=== PATIENT | male | born 1970 | race Caucasian/White ===

== ENCOUNTER 2021-06-14 00:02 | Emergency (ER) | payer OTHER ==
[2021-06-14] MEDS ORDERED: Sodium Chloride 0.9% 1000 ML 1,000 ML IV STA (00:36)
[2021-06-14] MEDS ORDERED: TORAdol 30 mg Injection IV ONE (00:36)
[2021-06-14] MEDS ORDERED: Sodium Chloride 0.9% 1000 ML 1,000 ML ONE (00:41)
[2021-06-14] MEDS ORDERED: TORAdol 30 mg Injection ONE (00:41)
[2021-06-14] MEDS ORDERED: Zofran 4 MG/2 ML VIAL IV ONE (00:42)
[2021-06-14] MEDS ORDERED: Zofran 4 MG/2 ML VIAL ONE (00:42)
[2021-06-14 00:49] LABS: Absolute Neutrophil Ct (ANC) 4.72 (1.4-6.9); Basophil (Absolute #) 0.03 (0-0.4); Eosinophil % 5.1 % (0.00-5.0); Eosinophil (Absolute #) 0.47 (0-0.5); Hematocrit 42.5 % (42-50); Hemoglobin 14.6 gm/dl (12.5-18.0); Lymphocyte (Absolute #) 2.95 (1.0-4.6); Lymphocytes % 31.9 % (24.0-44.0); Mean Cell Volume 84.7 fl (78-100); Mean Corpuscular Hemoglobin 29.1 pg (26-32); Mean Corpuscular Hgb Concent. 34.4 g/dl (32-36); Mean Platelet Volume 10.5 fl (7.5-11.0); Monocyte (Absolute #) 1.09 (0.0-1.3); Monocytes % 11.8 % (0.0-12.0); Neutrophil % 50.9 % (36.0-66.0); Platelet Count 217 K/mm3 (150-450); Red Blood Count 5.02 M/mm3 (4.1-5.6); Red Cell Distribution Width 13.6 % (11.5-14.0); White Blood Count 9.3 K/mm3 (4.0-10.5)
[2021-06-14 01:01] LABS: ALBUMIN 4.4 g/dL (3.5-5.0); ALKALINE PHOSPHATASE 50 U/L (38-126); ANION GAP 12.8 MEQ/L (5-15); BLOOD UREA NITROGEN 14 mg/dL (9-20); CHLORIDE 99 mmol/L (98-107); Calcium 9.1 mg/dL (8.4-10.2); Carbon Dioxide 32 mmol/L (22-30); Creatinine 1 1.11 mg/dL (0.66-1.25); EST GLOMERULAR FILTRATION RATE > 60.0 ML/MIN; Glucose 103 mg/dL (74-106); Potassium 3.2 mmol/L (3.5-5.1); SGOT/AST 19 U/L (17-59); SGPT/ALT 18 U/L (0-50); SODIUM 140 mmol/L (137-145); Total Protein 7.5 g/dL (6.3-8.2)
[2021-06-14 01:16] LABS: Appearance CLEAR (CLEAR); Bilirubin NEGATIVE (NEGATIVE); Blood SMALL Ery/ul (0-5); Glucose NEGATIVE (NEGATIVE); Ketones NEGATIVE (NEGATIVE); Leukocyte Esterase NEGATIVE (NEGATIVE); Mucus SLIGHT /HPF (NEGATIVE); Nitrite NEGATIVE (NEGATIVE); Protein,Urine Dip NEGATIVE (Negative); Urobilinogen NEGATIVE mg/dL (0-1); WBC 0-2 /HPF (0-5)
[2021-06-14 01:17] LABS: Bacteria NONE SEEN /HPF (NEGATIVE)
[2021-06-14 01:24] VITALS: BP 123/84; PULSE 68
[2021-06-14 01:25] VITALS: O2SAT 99
--- NOTE | 2021-06-14 01:25 | ERPHSYRPT ---
- History of Present Illness Time Seen by Provider: 06/14/21 00:20 Historian: patient Patient Subjective Stated Complaint: pt states "I woke up with pain in my side and it has got worse." Triage Nursing Assessment: pt ambulated into the er; pt is axo x4; c/o LLQ pain; pt states 6/10 pain to LLQ; pt states pain is dull, sharp, burning that starts in LLQ and radiates to groin; c/o N/V; denies diarrhea; abd is round, soft, tenderness to LLQ; urine clear yellow; active bowel sounds in all quads; hypertensive Physician History: Patient is a 50-year-old male presents to emergency department for evaluation of left lower quadrant pain. Patient states he awoke with the pain just prior to arrival.. Patient states the pain has gotten worse. Pain is mostly the left lower quadrant. Pain currently rated 6 out of 10. Pain is described as a dull to sharp sensation. Pain was associated with nausea and vomiting. Patient denies a history of the same. Symptoms are moderate in intensity. No specific worsening improving factors. Patient urinated shortly after pain onset. However there was no obvious hematuria. Patient is otherwise healthy. No chest pain. No shortness of breath. No rash. No fever. Patient denies trauma. Patient voices no other complaints or concerns at this time. Timing/Duration: today Activities at Onset: none Quality: dullness, sharpness Abdominal Pain Onset Location: LLQ Pain Radiation: no radiation Severity of Pain-Max: moderate Severity of Pain-Current: mild Modifying Factors: Improves With: nothing Associated Symptoms: nausea, vomiting, No diaphoresis, No diarrhea, No fever/ chills, No headache, No shortness of breath, No syncope, No testicular pain Previous symptoms: no prior history Allergies/Adverse Reactions: No Known Drug Allergies Allergy (Unverified 06/14/21 00:13) Home Medications: No Reportable Medications [No Reported Medications] 06/14/21 [History] Hx Tetanus, Diphtheria Vaccination/Date Given: Yes Hx Influenza Vaccination/Date Given: Yes Hx Pneumococcal Vaccination/Date Given: No Immunizations Up to Date: No Travel Risk - International Travel Have you traveled outside of the country in past 3 weeks: No - Coronavirus Screening Are you exhibiting any of the following symptoms?: No Close contact with a COVID-19 positive Pt in past 14-21 Days: No - Vaccine Status Have you recieved a Covid-19 vaccination: 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[employer] - Vaccination Dates Date of 2cond Vaccination (if applicable): 10/06 - Review of Systems Constitutional: No Symptoms, No Fever, No Chills Eyes: No Symptoms Ears, Nose, & Throat: No Symptoms Respiratory: No Symptoms, No Cough, No Dyspnea Cardiac: No Symptoms, No Chest Pain, No Edema, No Syncope Abdominal/Gastrointestinal: No Symptoms, No Abdominal Pain, No Nausea, No Vomiting, No Diarrhea Genitourinary Symptoms: No Symptoms, No Dysuria Musculoskeletal: No Symptoms, No Back Pain, No Neck Pain Skin: No Symptoms, No Rash Neurological: No Symptoms, No Dizziness, No Focal Weakness, No Sensory Changes Psychological: No Symptoms Endocrine: No Symptoms Hematologic/Lymphatic: No Symptoms Immunological/Allergic: No Symptoms All Other Systems: Reviewed and Negative - Past Medical History Pertinent Past Medical History: No Neurological History: No Pertinent History ENT History: No Pertinent History Cardiac History: No Pertinent History Respiratory History: No Pertinent History Endocrine Medical History: No Pertinent History Musculoskeletal History: No Pertinent History GI Medical History: No Pertinent History History: No Pertinent History Psycho-Social History: No Pertinent History Male Reproductive Disorders: No Pertinent History - Past Surgical History Past Surgical History: Yes Neuro Surgical History: No Pertinent History Cardiac: No Pertinent History Respiratory: No Pertinent History Gastrointestinal: Hemorrhoidectomy Genitourinary: No Pertinent History Musculoskeletal: No Pertinent History Male Surgical History: No Pertinent History Other Surgical History: wisdom teeth removal - Social History Smoking Status: Never smoker Exposure to second hand smoke: No Drug Use: none Patient Lives Alone: No - Nursing Vital Signs Nursing Vital Signs: Initial Vital Signs Temperature 97.4 F 06/14/21 00:13 Pulse Rate 61 06/14/21 00:13 Respiratory Rate 16 06/14/21 00:13 Blood Pressure 143/97 06/14/21 00:13 O2 Sat by Pulse Oximetry 99 06/14/21 00:13 Pain Scale Pain Intensity 3 - Physical Exam General Appearance: no apparent distress, alert Eye Exam: PERRL/EOMI, eyes nml inspection Ears, Nose, Throat Exam: normal ENT inspection, TMs normal, pharynx normal, moist mucous membranes Neck Exam: normal inspection, non-tender, supple, full range of motion Respiratory Exam: normal breath sounds, lungs clear, airway intact, No chest tenderness, No respiratory distress Cardiovascular Exam: regular rate/rhythm, normal heart sounds, normal peripheral pulses Gastrointestinal/Abdomen Exam: soft, tenderness (Tenderness palpation left lower quadrant. Overlying soft tissue intact. No signs of trauma.), No normal bowel sounds, No distention, No mass, No guarding Back Exam: normal inspection, normal range of motion, No CVA tenderness, No vertebral tenderness Extremity Exam: normal inspection, normal range of motion, pelvis stable Neurologic Exam: alert, oriented x 3, cooperative, normal mood/affect, nml cerebellar function, sensation nml, No motor deficits Skin Exam: normal color, warm, dry Lymphatic Exam: No adenopathy SpO2 Interpretation: normal SpO2: 99 O2 Delivery: Room Air - Course Nursing assessment & vital signs reviewed: Yes - CT Exams Abdomen/Pelvis CT Interpretation: Tele-radiologist Report (5 mm left renal stone. Otherwise no evidence of acute intra-abdominal or pelvic pathology.) Ordered Tests: Active Orders 24 hr Category Date Time Status IV Insertion STAT Care 06/14/21 00:36 Active ABDOMEN AND PELVIS W/0 CONTRAS [CT] Stat Exams 06/14/21 00:36 Taken CBC W DIFF Stat Lab 06/14/21 00:43 Completed CMP Stat Lab 06/14/21 00:43 Completed UA W/RFX UR CULTURE Stat Lab 06/14/21 00:39 Completed Medication Summary Discontinued Medications Generic Name Dose Route Start Last Admin Trade Name Freq PRN Reason Stop Dose Admin Sodium Chloride 1,000 mls @ 999 mls/hr 06/14/21 00:36 06/14/21 01:44 Sodium Chloride 0.9% 1000 Ml IV 06/14/21 01:36 Infused .Q1H1M STA Infusion Sodium Chloride Confirm 06/14/21 00:41 Sodium Chloride 0.9% 1000 Ml Administered 06/14/21 00:42 Dose 1,000 mls @ ud .ROUTE .STK-MED ONE Ketorolac Tromethamine 30 mg 06/14/21 00:36 06/14/21 00:44 Ketorolac Tromethamine 30 Mg/Ml Inj IV 06/14/21 00:37 30 mg STAT ONE Administration Ketorolac Tromethamine Confirm 06/14/21 00:41 Ketorolac Tromethamine 30 Mg/Ml Inj Administered 06/14/21 00:42 Dose 30 mg .ROUTE .STK-MED ONE Ondansetron HCl 4 mg 06/14/21 00:42 06/14/21 00:44 Ondansetron Hcl 4 Mg/2 Ml Vial IV 06/14/21 00:43 4 mg STAT ONE Administration Ondansetron HCl Confirm 06/14/21 00:42 Ondansetron Hcl 4 Mg/2 Ml Vial Administered 06/14/21 00:43 Dose 4 mg .ROUTE .STK-MED ONE Potassium Chloride 40 meq 06/14/21 01:35 06/14/21 01:40 Potassium Chloride 10 Meq Tablet PO 06/14/21 01:36 40 meq STAT ONE Administration Potassium Chloride Confirm 06/14/21 01:40 Potassium Chloride 10 Meq Tablet Administered 06/14/21 01:41 Dose 40 meq PO .STK-MED ONE Lab/Rad Data: Laboratory Result Diagrams 06/14/21 00:43 06/14/21 00:43 Laboratory Results 06/14/21 06/14/21 06/14/21 Range/Units 00:43 00:43 00:39 WBC 9.3 (4.0-10.5) K/mm3 RBC 5.02 (4.1-5.6) M/mm3 Hgb 14.6 (12.5-18.0) gm/dl Hct 42.5 (42-50) % MCV 84.7 (78-100) fl MCH 29.1 (26-32) pg MCHC 34.4 (32-36) g/dl RDW 13.6 (11.5-14.0) % Plt Count 217 (150-450) K/mm3 MPV 10.5 (7.5-11.0) fl Gran % 50.9 (36.0-66.0) % Eos # (Auto) 0.47 (0-0.5) Absolute Lymphs (auto) 2.95 (1.0-4.6) Absolute Monos (auto) 1.09 (0.0-1.3) Lymphocytes % 31.9 (24.0-44.0) % Monocytes % 11.8 (0.0-12.0) % Eosinophils % 5.1 H (0.00-5.0) % Basophils % 0.3 (0.0-0.4) % Absolute Granulocytes 4.72 (1.4-6.9) Basophils # 0.03 (0-0.4) Sodium 140 (137-145) mmol/L Potassium 3.2 L (3.5-5.1) mmol/L Chloride 99 (98-107) mmol/L Carbon Dioxide 32 H (22-30) mmol/L Anion Gap 12.8 (5-15) MEQ/L BUN 14 (9-20) mg/dL Creatinine 1.11 (0.66-1.25) mg/dL Estimated GFR > 60.0 ML/MIN Glucose 103 (74-106) mg/dL Calcium 9.1 (8.4-10.2) mg/dL Total Bilirubin 0.60 (0.2-1.3) mg/dL AST 19 (17-59) U/L ALT 18 (0-50) U/L Alkaline Phosphatase 50 (38-126) U/L Serum Total Protein 7.5 (6.3-8.2) g/dL Albumin 4.4 (3.5-5.0) g/dL Urine Color YELLOW (YELLOW) Urine Appearance CLEAR (CLEAR) Urine pH 6.0 (5-6) Ur Specific [place] 1.020 (1.005-1.025) Urine Protein NEGATIVE (Negative) Urine Ketones NEGATIVE (NEGATIVE) Urine Blood SMALL (0-5) Facundo/ul Urine Nitrite NEGATIVE (NEGATIVE) Urine Bilirubin NEGATIVE (NEGATIVE) Urine Urobilinogen NEGATIVE (0-1) mg/dL Ur Leukocyte Esterase NEGATIVE (NEGATIVE) Urine WBC (Auto) 0-2 (0-5) /HPF Urine RBC (Auto) 6-10 (0-2) /HPF U Epithel Cells (Auto) NONE (FEW) /HPF Urine Bacteria (Auto) NONE SEEN (NEGATIVE) /HPF Urine Mucus (Auto) SLIGHT (NEGATIVE) /HPF Urine Culture Reflexed NO (NO) Urine Glucose NEGATIVE (NEGATIVE) mg/dL - Progress Progress: improved Progress Note: Patient reassessed. Pain significantly improved. CT abdomen pelvis shows a left 5 mm nonobstructing kidney stone. Otherwise no ureterolithiasis. There is microscopic hematuria. It is possible that patient had a very small stone that passed causing him to feel acute onset pain and the identified microscopic hematuria. However no indication for further work-up at this time. Will discharge patient home. Patient will follow up with Dr. Navarro within 48 hours for evaluation. Patient voices no other complaints or concerns at this time. Portions of this note were created with voice recognition technology. There may be grammatical, spelling, punctuation or sound alike errors 06/14/21 01:53 Counseled pt/family regarding: lab results, diagnosis, need for follow-up, rad results - Departure Departure Disposition: Home Clinical Impression: Microscopic hematuria, Hypokalemia, Nephrolithiasis Condition: Stable Critical Care Time: No Referrals: KIMBERLEY NAVARRO MD [Primary Care Provider] - Follow up/PCP as directed Additional Instructions: Discharge/Care Plan YAMILET CLEVELAND was seen on 06/14/21 in the Emergency Room. The patient was counseled regarding Diagnosis,Lab results, Imaging studies, need for follow up and when to return to the Emergency Room. Prescriptions given: Discharge Note I have spoken with the patient and/or caregivers. I have explained the patient's condition, diagnosis and treatment plan based on the information available to me at this time. I have answered the patient's and/or caregiver's questions and addressed any concerns. The patient and/or caregivers have as good understanding of the patient's diagnosis, condition and treatment plan as can be expected at this point. The vital signs have been stable. The patient's condition is stable and appropriate for discharge from the emergency department. The patient will pursue further outpatient evaluation with the primary care ph ysician or other designated or consulting physician as outlined in the discharge instructions. The patient and/or caregivers are agreeable to this plan of care and follow-up instructions have been explained in detail. The patient and/or caregivers have received these instruction. The patient/and or caregivers are aware that any significant change in condition or worsening of symptoms should prompt an immediate return to this or the closest emergency department or call 911.
[2021-06-14] MEDS ORDERED: Klor Con 10 MEQ PO ONE ×2 (01:35→01:40)
--- NOTE | 2021-06-14 08:47 | XRAY ---
Indication: Left flank pain. Nausea, vomiting, and difficulty urinating. Multiple contiguous axial images obtained through the abdomen and pelvis without contrast using renal stone protocol. Comparison: None Lung bases demonstrates minimal dependent atelectasis. No infiltrate or effusion. Heart not enlarged. Small hiatal hernia. Left kidney demonstrates 5 mm nonobstructing calculus. No other renal calculus or evidence for obstructive uropathy in either system. Noncontrasted stomach and bowel loops appear nonobstructed with normal appendix. No free fluid/air. Remaining liver, gallbladder, pancreas, spleen, adrenal glands, kidneys, ureters, bladder, and aorta are unremarkable for noncontrast exam. Osseous structures intact. No ventral or inguinal hernias. Impression: 1. Nonobstructing left renal micro-calculus. 2. Small hiatal hernia. 3. Remaining CT abdomen/pelvis without contrast exam is negative. Comment: Preliminary interpretation made by [facility]. No critical discrepancy.
== END 2021-06-14 02:06 | disposition home or self-care (01) ==
LOC: ED 00:02
DX: N20.0 Calculus of kidney (principal); E87.6 Hypokalemia; R31.29 Other microscopic hematuria; R11.2 Nausea with vomiting, unspecified
CPT/HCPCS: 36000; 36415; 74176; 80053; 81001; 85025; 96360; 96374; 99284; J1885; J2405; A9270-GY

== ENCOUNTER 2021-06-14 11:21 | Emergency (ER) | payer OTHER ==
[2021-06-14] MEDS ORDERED: Zofran 4 MG/2 ML VIAL IV ONE (11:47)
[2021-06-14] MEDS ORDERED: Sodium Chloride 0.9% 1000 ML 1,000 ML IV STA (11:47)
[2021-06-14] MEDS ORDERED: MORPHINE SULFATE 4 MG INJ IV ONE (11:47)
--- NOTE | 2021-06-14 12:14 | ERPHSYRPT ---
- History of Present Illness Time Seen by Provider: 06/14/21 11:33 Historian: patient Exam Limitations: no limitations Patient Subjective Stated Complaint: Pt here last night and found to have a kidney stone in the left kidney, pt went home and continued to have pain and v omit all night, pt still in considerable amount of pain and is still having N&V Triage Nursing Assessment: Pt brought self to the ER, hypertensive, rates flank pain as 8-9/10, N&V, thinks that in the past 10-15 minutes that it might have started feeling just a touch better, pulses normal, skin n/w/d, no new symptoms since yesterday Physician History: 50 years old male presented in the ER with chief complaint of left flank/left lower quadrant pain which started originally last night and was evaluated in the ER with a negative CT for any acute finding like ureterolithiasis but did have small 5 mm left nonobstructing renal calculi. Patient was given symptomatic treatment and improved, was discharged but reports that his pain did not complet boby go away and earlier it started getting worse again, moderate to severe intensity sharp cramping with associated nausea and dry heaving without vomiting today. He did have vomiting yesterday. Denies any diarrhea. Reports dark urine but no jovana hematuria. Denies increased frequency, urgency or hesitancy. No history of kidney stones in the past. No fever or chills reported. Timing/Duration: yesterday, worse Activities at Onset: activity, rest Quality: sharpness Abdominal Pain Onset Location: LLQ, flank Severity of Pain-Max: severe Severity of Pain-Current: moderate Modifying Factors: Worsens With: movement, palpation Associated Symptoms: nausea Previous symptoms: no prior history Allergies/Adverse Reactions: No Known Drug Allergies Allergy (Verified 06/14/21 11:36) Hx Tetanus, Diphtheria Vaccination/Date Given: Yes Hx Influenza Vaccination/Date Given: Yes Hx Pneumococcal Vaccination/Date Given: No Travel Risk - International Travel Have you traveled outside of the country in past 3 weeks: No - Coronavirus Screening Are you exhibiting any of the following symptoms?: No Close contact with a COVID-19 positive Pt in past 14-21 Days: No - Vaccine Status Have you recieved a Covid-19 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: 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[employer] - Vaccination Dates Date of 2cond Vaccination (if applicable): 10/06 - Review of Systems Constitutional: No Symptoms Eyes: No Symptoms Ears, Nose, & Throat: No Symptoms Respiratory: No Symptoms Cardiac: No Symptoms Abdominal/Gastrointestinal: Abdominal Pain, Nausea, Vomiting Genitourinary Symptoms: Flank Pain Musculoskeletal: No Symptoms Neurological: No Symptoms Psychological: No Symptoms Endocrine: No Symptoms Hematologic/Lymphatic: No Symptoms Immunological/Allergic: No Symptoms - Past Medical History Pertinent Past Medical History: No Neurological History: No Pertinent History ENT History: No Pertinent History Cardiac History: No Pertinent History Respiratory History: No Pertinent History Endocrine Medical History: No Pertinent History Musculoskeletal History: No Pertinent History GI Medical History: No Pertinent History History: No Pertinent History Psycho-Social History: No Pertinent History Male Reproductive Disorders: No Pertinent History - Past Surgical History Past Surgical History: Yes Neuro Surgical History: No Pertinent History Cardiac: No Pertinent History Respiratory: No Pertinent History Gastrointestinal: Hemorrhoidectomy Genitourinary: No Pertinent History Musculoskeletal: No Pertinent History Male Surgical History: No Pertinent History Other Surgical History: wisdom teeth removal - Social History Smoking Status: Never smoker Exposure to second hand smoke: No Drug Use: none Patient Lives Alone: No - Nursing Vital Signs Nursing Vital Signs: Initial Vital Signs Temperature 97.1 F 06/14/21 11:28 Pulse Rate 71 06/14/21 11:28 Blood Pressure 155/101 06/14/21 11:28 O2 Sat by Pulse Oximetry 99 06/14/21 11:28 Pain Scale Pain Intensity 8 - Physical Exam General Appearance: no apparent distress, alert Eye Exam: PERRL/EOMI, eyes nml inspection Ears, Nose, Throat Exam: normal ENT inspection, TMs normal, pharynx normal, moist mucous membranes Neck Exam: normal inspection, non-tender, supple, full range of motion Respiratory Exam: normal breath sounds, lungs clear Cardiovascular Exam: regular rate/rhythm, normal heart sounds Gastrointestinal/Abdomen Exam: soft, normal bowel sounds, tenderness (Left flank/left lower quadrant), guarding Back Exam: CVA tenderness (Left) Extremity Exam: normal inspection, normal range of motion, pelvis stable Neurologic Exam: alert, oriented x 3, cooperative, bottle packer II-XII nml as tested Skin Exam: normal color SpO2 Interpretation: normal SpO2: 99 O2 Delivery: Room Air Ordered Tests: Active Orders 24 hr Category Date Time Status ABDOMEN AND PELVIS W CONTRAST [CT] Stat Exams 06/14/21 11:49 Completed CBC W DIFF Stat Lab 06/14/21 12:00 Completed CMP Stat Lab 06/14/21 12:00 Completed CULTURE,URINE Stat Lab 06/14/21 12:41 Received LIPASE Stat Lab 06/14/21 12:00 Completed UA W/RFX UR CULTURE Stat Lab 06/14/21 12:41 Completed Medication Summary Generic Name Dose Route Start Last Admin Trade Name Lisa PRN Reason Stop Dose Admin Tamsulosin HCl 0.4 mg 06/15/21 10:00 06/14/21 13:14 Tamsulosin Hcl 0.4 Mg Cap PO 07/15/21 09:59 0.4 mg DAILY LONNIE Administration Discontinued Medications Generic Name Dose Route Start Last Admin Trade Name Lisa PRN Reason Stop Dose Admin Sodium Chloride 1,000 mls @ 999 mls/hr 06/14/21 11:47 06/14/21 12:35 Sodium Chloride 0.9% 1000 Ml IV 06/14/21 12:47 999 mls/hr .Q1H1M STA Administration Sodium Chloride Confirm 06/14/21 12:24 Sodium Chloride 0.9% 1000 Ml Administered 06/14/21 12:25 Dose 1,000 mls @ ud .ROUTE .STK-MED ONE Ketorolac Tromethamine Confirm 06/14/21 13:15 Ketorolac Tromethamine 30 Mg/Ml Inj Administered 06/14/21 13:16 Dose 30 mg .ROUTE .STK-MED ONE Ketorolac Tromethamine 30 mg 06/14/21 13:18 06/14/21 13:19 Ketorolac Tromethamine 30 Mg/Ml Inj IV 06/14/21 13:19 30 mg STAT ONE Administration Morphine Sulfate 4 mg 06/14/21 11:47 Morphine Sulfate 4 Mg/Ml Injection IV 06/14/21 11:48 STAT ONE Ondansetron HCl 4 mg 06/14/21 11:47 06/14/21 12:37 Ondansetron Hcl 4 Mg/2 Ml Vial IV 06/14/21 11:48 4 mg STAT ONE Administration Ondansetron HCl Confirm 06/14/21 12:24 Ondansetron Hcl 4 Mg/2 Ml Vial Administered 06/14/21 12:25 Dose 4 mg .ROUTE .STK-MED ONE Tamsulosin HCl Confirm 06/14/21 13:13 Tamsulosin Hcl 0.4 Mg Cap Administered 01/27/22 13:14 Dose 0.4 mg .ROUTE .STK-MED ONE Lab/Rad Data: Laboratory Result Diagrams 06/14/21 12:00 06/14/21 12:00 Laboratory Results 06/14/21 06/14/21 06/14/21 Range/Units 12:41 12:00 12:00 WBC 11.1 H (4.0-10.5) K/mm3 RBC 4.86 (4.1-5.6) M/mm3 Hgb 13.9 (12.5-18.0) gm/dl Hct 40.7 L (42-50) % MCV 83.7 (78-100) fl MCH 28.6 (26-32) pg MCHC 34.2 (32-36) g/dl RDW 13.6 (11.5-14.0) % Plt Count 195 (150-450) K/mm3 MPV 10.7 (7.5-11.0) fl Gran % 82.7 H (36.0-66.0) % Eos # (Auto) 0.02 (0-0.5) Absolute Lymphs (auto) 0.98 L (1.0-4.6) Absolute Monos (auto) 0.90 (0.0-1.3) Lymphocytes % 8.8 L (24.0-44.0) % Monocytes % 8.1 (0.0-12.0) % Eosinophils % 0.2 (0.00-5.0) % Basophils % 0.2 (0.0-0.4) % Absolute Granulocytes 9.22 H (1.4-6.9) Basophils # 0.02 (0-0.4) Sodium 138 (137-145) mmol/L Potassium 3.9 D (3.5-5.1) mmol/L Chloride 103 (98-107) mmol/L Carbon Dioxide 25 (22-30) mmol/L Anion Gap 13.2 (5-15) MEQ/L BUN 12 (9-20) mg/dL Creatinine 1.07 (0.66-1.25) mg/dL Estimated GFR > 60.0 ML/MIN Glucose 110 H (74-106) mg/dL Calcium 8.9 (8.4-10.2) mg/dL Total Bilirubin 0.80 (0.2-1.3) mg/dL AST 19 (17-59) U/L ALT 17 (0-50) U/L Alkaline Phosphatase 53 (38-126) U/L Serum Total Protein 6.8 (6.3-8.2) g/dL Albumin 4.0 (3.5-5.0) g/dL Lipase 53 (23-300) U/L Urine Color STRAW (YELLOW) Urine Appearance CLEAR (CLEAR) Urine pH 6.0 (5-6) Ur Specific [place] 1.030 (1.005-1.025) Urine Protein NEGATIVE (Negative) Urine Ketones NEGATIVE (NEGATIVE) Urine Blood LARGE (0-5) Facundo/ul Urine Nitrite NEGATIVE (NEGATIVE) Urine Bilirubin NEGATIVE (NEGATIVE) Urine Urobilinogen NEGATIVE (0-1) mg/dL Ur Leukocyte Esterase NEGATIVE (NEGATIVE) Urine WBC (Auto) 0-2 (0-5) /HPF Urine RBC (Auto) 51-100 (0-2) /HPF U Epithel Cells (Auto) NONE (FEW) /HPF Urine Bacteria (Auto) RARE (NEGATIVE) /HPF Urine Culture Reflexed YES (NO) Urine Glucose NEGATIVE (NEGATIVE) mg/dL - Progress Progress: improved, re-examined Progress Note: 06/14/21 13:39 50 years old is evaluated for left flank pain. Given fluid bolus and symptomatic treatment for pain, on reevaluation pain is almost resolved. Has normal white count, grossly unremarkable chemistries including renal functions and does not have UTI. I have repeated CT this time with contrast and it showed 5 mm stone at left UVJ with minimal obstructive uropathy and hydronephrosis. No signs of pyelonephritis or perinephric fat stranding. Is also given Flomax. I think patient would be able to pass the stone on its own, will give him pain medication along with Flomax and recommended outpatient follow-up. Called urology at [facility] and patient has appointment tomorrow at [address] Guaman. Discussed signs symptoms of worsening needing return to ER which he seems understanding. Counseled pt/family regarding: lab results, diagnosis, need for follow-up, rad results - Departure Departure Disposition: Home Clinical Impression: Ureterolithiasis Condition: Stable Critical Care Time: No Referrals: KIMBERLEY NAVARRO MD [Primary Care Provider] - Follow up/PCP as directed PEGGY MOSHER DO [NON-STAFF PHY W/O PRIVILEGES] - Follow up/PCP as directed (Tomorrow for reevaluation as scheduled.) Instructions: Kidney Stones (DC) Additional Instructions: Take pain medications as needed. Drink plenty of fluids. Follow-up with urology tomorrow as scheduled for reevaluation. Return to ER for intractable pain, nausea vomiting/fever chills etc. Prescriptions: Hydrocodone/Acetaminophen [Hydrocodone-Acetamin 5-325 mg] 1 tab PO Q6HPRN PRN 3 Days #12 tablet MDD 4 PRN Reason: Pain Tamsulosin HCl 0.4 mg [Flomax 0.4 MG] 0.4 mg PO DAILY #30 cap
[2021-06-14 12:16] LABS: Absolute Neutrophil Ct (ANC) 9.22 (1.4-6.9); Basophil (Absolute #) 0.02 (0-0.4); Eosinophil % 0.2 % (0.00-5.0); Eosinophil (Absolute #) 0.02 (0-0.5); Hematocrit 40.7 % (42-50); Hemoglobin 13.9 gm/dl (12.5-18.0); Lymphocyte (Absolute #) 0.98 (1.0-4.6); Lymphocytes % 8.8 % (24.0-44.0); Mean Cell Volume 83.7 fl (78-100); Mean Corpuscular Hemoglobin 28.6 pg (26-32); Mean Corpuscular Hgb Concent. 34.2 g/dl (32-36); Mean Platelet Volume 10.7 fl (7.5-11.0); Monocytes % 8.1 % (0.0-12.0); Neutrophil % 82.7 % (36.0-66.0); Platelet Count 195 K/mm3 (150-450); Red Blood Count 4.86 M/mm3 (4.1-5.6); Red Cell Distribution Width 13.6 % (11.5-14.0); White Blood Count 11.1 K/mm3 (4.0-10.5)
[2021-06-14] MEDS ORDERED: Sodium Chloride 0.9% 1000 ML 1,000 ML ONE (12:24)
[2021-06-14] MEDS ORDERED: Zofran 4 MG/2 ML VIAL ONE (12:24)
[2021-06-14 12:44] LABS: ALKALINE PHOSPHATASE 53 U/L (38-126); ANION GAP 13.2 MEQ/L (5-15); BLOOD UREA NITROGEN 12 mg/dL (9-20); CHLORIDE 103 mmol/L (98-107); Calcium 8.9 mg/dL (8.4-10.2); Carbon Dioxide 25 mmol/L (22-30); Creatinine 1 1.07 mg/dL (0.66-1.25); EST GLOMERULAR FILTRATION RATE > 60.0 ML/MIN; Glucose 110 mg/dL (74-106); LIPASE 53 U/L (23-300); SGOT/AST 19 U/L (17-59); SGPT/ALT 17 U/L (0-50); SODIUM 138 mmol/L (137-145); Total Protein 6.8 g/dL (6.3-8.2)
[2021-06-14 12:52] VITALS: BP 121/85
--- NOTE | 2021-06-14 12:53 | XRAY ---
Indication: Left flank pain. Multiple contiguous axial images obtained through the abdomen and pelvis using 80 cc Isovue 370 contrast. Comparison: Taken earlier in the day. Lung bases again demonstrates minimal dependent atelectasis PA heart is not enlarged. Stable small hiatal hernia. Noncontrasted stomach and bowel loops remain nonobstructed. Normal appendix. No free fluid/air. Previous 5 mm left mid renal calculus now seen UPJ junction with minimal hydronephrosis. No free fluid/air. Inferior right lobe liver demonstrates stable 6 mm cyst. Remaining liver, gallbladder, pancreas spleen, adrenal glands, kidneys, ureters, bladder, and aorta are unremarkable. No pathologic retroperitoneal lymphadenopathy. Impression: 1. Previous 5 mm left renal calculus dislodged, now seen at UPJ producing minimal obstructive uropathy. 2. Again incidental small hiatal hernia and tiny hepatic cyst.
[2021-06-14 13:01] LABS: Potassium 3.9 mmol/L (3.5-5.1)
[2021-06-14] MEDS ORDERED: Flomax 0.4 MG ONE (13:13)
[2021-06-14] MEDS ORDERED: TORAdol 30 mg Injection ONE (13:15)
[2021-06-14] MEDS ORDERED: TORAdol 30 mg Injection IV ONE (13:18)
[2021-06-14 13:23] VITALS: PULSE 80
[2021-06-14 13:26] LABS: Appearance CLEAR (CLEAR); Bilirubin NEGATIVE (NEGATIVE); Blood LARGE Ery/ul (0-5); Glucose NEGATIVE (NEGATIVE); Ketones NEGATIVE (NEGATIVE); Leukocyte Esterase NEGATIVE (NEGATIVE); Nitrite NEGATIVE (NEGATIVE); Protein,Urine Dip NEGATIVE (Negative); RBC 51-100 /HPF (0-2); Urobilinogen NEGATIVE mg/dL (0-1); WBC 0-2 /HPF (0-5)
[2021-06-14 13:31] LABS: Bacteria RARE /HPF (NEGATIVE)
[2021-06-14 13:44] VITALS: O2SAT 99
[2021-06-15] MEDS ORDERED: Flomax 0.4 MG PO SCH (10:00)
== END 2021-06-14 13:50 | disposition home or self-care (01) ==
LOC: ED 11:21
DX: N20.1 Calculus of ureter (principal); R11.0 Nausea; Z79.891 Long term (current) use of opiate analgesic
CPT/HCPCS: 36000; 36415; 74177; 80053; 81001; 83690; 85025; 87086; 96360; 96374; 96375; 99284; J1885; J2405; A9270-GY

== ENCOUNTER 2022-05-02 06:23 | Day surgery (SDC) | payer OTHER ==
[2022-05-02] MEDS ORDERED: Lactated Ringers 1,000 ML IV SCH (06:30)
[2022-05-02] MEDS ORDERED: DIPRIVAN 200 MG/20 ML IV ONE ×2 (07:56→08:12)
[2022-05-02] MEDS ORDERED: Xylocaine-Mpf 2% 5 Ml Vial ONE (07:56)
[2022-05-02] MEDS ORDERED: Versed 2 MG/2 ML Injection ONE (07:56)
[2022-05-02 09:04] VITALS: O2SAT 97
[2022-05-02 09:09] VITALS: BP 121/73; PULSE 81
--- NOTE | 2022-05-02 09:53 | OP ---
SURGERY DATE/TIME: 05/02/2022 0805 PREOPERATIVE DIAGNOSIS: Screening colonoscopy. POSTOPERATIVE DIAGNOSIS: Descending colon polyp. PROCEDURE: Colonoscopy. SURGEON: Arturo Carter M.D. ANESTHESIA: MAC by Federico Guerra CRNA. ESTIMATED BLOOD LOSS: Minimal. SPECIMENS: Hot forceps polypectomy from descending colon. DESCRIPTION OF PROCEDURE: After informed written consent was obtained, the patient was taken to the endoscopy suite. He was placed in left lateral decubitus position. Anesthesia was titrated to desired level of consciousness. Digital rectal exam showed normal sphincter tone and no internal lesions. The scope was inserted into the rectum and sequentially the entire colonic mucosa was traversed. The level of cecum was reached and verified with direct visualization of the ileocecal valve. Upon withdrawal careful mucosal inspection revealed good prep score. He had a small sessile polyp in the proximal descending colon near the sigmoid. It was grasped with forceps, cauterized, removed in its entirety and sent for pathology testing. No other lesions were encountered. Retroflexion showed no internal lesions. The scope was removed. The patient was transferred to the recovery room in good condition.
== END 2022-05-02 09:11 | disposition home or self-care (01) ==
LOC: SDC 06:23
PROVIDERS: ATTEND Family Medicine
DX: Z12.11 Encounter for screening for malignant neoplasm of colon (principal); K63.5 Polyp of colon
CPT/HCPCS: J2250; J2704